=== PATIENT | female | born 1950 | race Caucasian/White ===

== ENCOUNTER 2017-02-21 09:00 | Inpatient (IN) | payer MEDICARE ==
--- NOTE | 2017-03-20 15:08 | HP ---
HISTORY AND PHYSICAL: DATE OF SURGERY: 03/28/17 DATE OF OFFICE VISIT: 03/20/17 SURGEON: Nara Kevin MD. PROCEDURE: Right total hip arthroplasty. CHIEF COMPLAINT: Right hip pain. HISTORY OF PRESENT ILLNESS: Ms. Rose is a 66-year-old female with complaints of right hip pain. She has failed conservative management and has elected to proceed with a right total hip arthroplasty, which is scheduled for 03/28/[address] Kevin. PAST MEDICAL HISTORY: 1. Squamous cell carcinoma. 2. She has a J-pouch. 3. History of pulmonary embolism. 4. Chronic bronchitis. PAST SURGICAL HISTORY: 1. Mohs chemosurgery. 2. Total colectomy. 3. Ileostomy reversal. 4. L3-L4 diskectomy. 5. Tonsillectomy. 6. Hysterectomy. CURRENT MEDICATIONS: 1. Nystatin. 2. Ventolin HFA. 3. Loperamide. 4. Gabapentin. 5. Duloxetine. 6. Diphenoxylate/atropine. 7. Citalopram. 8. Hydrobromide. 9. Vitamin B12. 10. Oxycodone 5 mg. 11. OxyContin 20 mg. 12. Xarelto 20 mg daily. 13. Vitamin D3. 14. Calcium. 15. Ibuprofen. 16. Metamucil. ALLERGIES: ZOLPIDEM. FAMILY HISTORY: Prostate and lung cancer, hypertension, Alzheimer's, and depression. SOCIAL HISTORY: She is a 66-year-old female. She lives with her . She does not smoke. She quit 17 years ago. She does not use drugs. She is a social alcohol user. REVIEW OF SYSTEMS: A complete 14-point review of systems was reviewed with the patient and was positive for a history of MRSA infection and pulmonary embolism. PHYSICAL EXAMINATION GENERAL: She is well developed, well nourished, is in no acute distress. VITAL SIGNS: She stands 5 feet 2 inches tall, weighs 212 pounds. Her blood pressure is 123/85. Her heart rate is 82. HEENT: Normocephalic, atraumatic. NECK: Supple. No palpable lymph nodes. CARDIO: Regular rate and rhythm. Strong S1, S2. PULMONARY: Lungs are clear to auscultation bilaterally. ABDOMEN: Soft, nontender, nondistended. MUSCULOSKELETAL: Right lower extremity, the skin is intact. She has no open wounds or abrasions. She walks with a slightly antalgic-type gait favoring her right leg. She has limited internal and external rotation of her right hip. Her lower extremity muscle group strengths are intact at 5/5. She has 2+ dorsalis pedis pulses and intact sensation. NEUROLOGIC: She is alert and oriented x3. Cranial nerves II through XII are intact. ASSESSMENT AND PLAN: Ms. Rose is a 66-year-old female with complaints of right hip pain secondary to advanced osteoarthritis. She has failed conservative management and has elected to proceed with a right total hip arthroplasty, which is scheduled for 03/28/[address] Kevin discussed the risks and benefits of the surgery at today's visit and all of her questions were answered. She was instructed by her primary care physician Dr. Miller to stop taking her Xarelto 5 days prior to the surgery. I have also asked her to stop her ibuprofen. Dr. Miller is currently managing her pain medication and she is currently on oxycodone 5 mg as well as OxyContin 20 mg twice a day, so no pain medication was sent at today's visit. She will see Dr. Kevin back in 2 weeks after the surgery. ALLYSON ECKERT [id number]/CPS #: [id number] MTDD
[2017-03-27] MEDS ORDERED: Buffered Lidocaine 0.9% SYRIN* 5 ML/SYR SYRINGE INTRADERM ONE (14:58)
[2017-03-28] MEDS ORDERED: Dexamethasone IV* 4 MG/ML 1 ML (4 MG) IV SLOW PU ONE (06:00)
[2017-03-28] MEDS ORDERED: Famotidine IV* 10 MG/ML 2 ML (20 mg) IV ONE (06:00)
[2017-03-28] MEDS ORDERED: Scopolamine 1.5 mg* PATCH TRANSDERM ONE (06:00)
[2017-03-28] MEDS ORDERED: Scopolamine 1.5 mg* PATCH ONE (10:03)
[2017-03-28] MEDS ORDERED: Buffered Lidocaine 0.9% SYRIN* 5 ML/SYR SYRINGE ONE (10:03)
[2017-03-28] MEDS ORDERED: ceFAZolin 2 GM PREMIX(*) 2 GM/50 ML BAG IVPB ONE (10:03)
[2017-03-28] MEDS ORDERED: Famotidine IV* 10 MG/ML 2 ML (20 mg) ONE (10:03)
[2017-03-28] MEDS ORDERED: Dexamethasone IV* 4 MG/ML 1 ML (4 MG) ONE (10:03)
[2017-03-28 11:12] LABS: Hematocrit 36 % (35-47); Hemoglobin 12.1 g/dl (12.0-16.0); Mean Corpuscular HGB Conc 33 g/dl (31-36); Mean Corpuscular Hemoglobin 29 pg (27-31); Mean Corpuscular Volume 86 fL (80-97); Mean Platelet Volume 7 um3 (7.4-10.4); Red Cell Distribution Width 15 % (10.5-15); White Blood Count 8.3 10^3/ul (3.5-10.8)
[2017-03-28 11:27] LABS: Albumin 4.2 g/dL (3.2-5.2); Calcium 9.2 mg/dL (8.6-10.3); EGFR African American 106.6 (>60); EGFR Non-African American 82.9 (>60); Globulin 2.7 g/dL (2-4); Potassium 3.8 mmol/L (3.5-5.0); Total Bilirubin 0.6 mg/dL (0.2-1.0); Total Protein 6.9 g/dL (6.4-8.9)
[2017-03-28] MEDS ORDERED: fentaNYL* 50 MCG/ML 5 ML VIAL (250 MCG VIAL) ONE (12:44)
[2017-03-28] MEDS ORDERED: Midazolam* 1 MG/ML 2 ML VIAL (2 MG) ONE (12:44)
[2017-03-28] MEDS ORDERED: KETAMINE HCL* 50 MG/ML 10 ML VIAL ONE (12:44)
[2017-03-28] MEDS ORDERED: Rocuronium* 10 MG/ML VIAL ONE (13:25)
[2017-03-28] MEDS ORDERED: Propofol* 10 MG/ML 20 ML BTL IV PUSH ONE (13:25)
[2017-03-28] MEDS ORDERED: Lidocaine 2% PF * 5 ML VIAL ONE (13:25)
[2017-03-28] MEDS ORDERED: fentaNYL* 50 MCG/ML 2 ML VIAL (100 MCG VIAL) ONE ×3 (13:37→15:11)
[2017-03-28] MEDS ORDERED: Bupivacaine 0.5% SDV PF* 30 ML VIAL ONE (13:53)
[2017-03-28] MEDS ORDERED: PROCHLORPERAZINE INJ 5 MG/ML 2 ML VIAL IV PRN (14:09)
[2017-03-28] MEDS ORDERED: oxyCODONE TAB* 5 MG TAB PO PRN ×2 (14:09→20:05)
[2017-03-28] MEDS ORDERED: Ondansetron INJ* 2 MG/ML VIAL IV PRN ×2 (14:09→16:29)
[2017-03-28] MEDS ORDERED: Acetaminophen IV 1GM/100ML * 100 ML IVPB ONE (14:09)
[2017-03-28] MEDS ORDERED: Nalbuphine* 20 MG/ML 1 ML VIAL IV PRN (14:09)
[2017-03-28] MEDS ORDERED: EPHEDrine (Pressors)* 50 MG/ML VIAL ONE (14:32)
[2017-03-28] MEDS ORDERED: Ondansetron INJ* 2 MG/ML VIAL ONE (14:34)
--- NOTE | 2017-03-28 15:24 | RAD ---
HISTORY: Right total hip replacement COMPARISONS: March 20, 2017 VIEWS: 1, portable intraoperative view of the pelvis during hip arthroplasty FINDINGS: Single portable intraoperative view of the pelvis to hip arthroplasty demonstrates a right hip arthroplasty with a temporary femoral sizing component. IMPRESSION: PORTABLE INTRAOPERATIVE VIEW OF THE PELVIS DURING HIP ARTHROPLASTY
[2017-03-28] MEDS ORDERED: Acetaminophen IV 1GM/100ML * 100 ML ONE (15:38)
[2017-03-28] MEDS ORDERED: Polyethylene Glycol 3350* 17 GM PACKET PO PRN (16:29)
[2017-03-28] MEDS ORDERED: Magnesium Hydroxide LIQ* 30 ML UDC PO PRN (16:29)
[2017-03-28] MEDS ORDERED: Acetaminophen TAB* 325 MG PO PRN (16:29)
[2017-03-28] MEDS ORDERED: diPHENhydraMINE IV* 50 MG/ML 1 ml VIAL (BENADRYL) IV PRN (16:29)
[2017-03-28] MEDS ORDERED: Metoprolol Tartrate IV* 1 MG/ML 5 ML VIAL ONE (16:29)
[2017-03-28] MEDS ORDERED: Bisacodyl SUPP* 10 MG SUPP PR PRN (16:29)
[2017-03-28] MEDS ORDERED: Diphenoxylat/Atrop 2.5-0.025M* 1 TAB PO PRN (16:34)
[2017-03-28] MEDS ORDERED: Morphine INJ* 4 MG/ML 1 ML SYRINGE ONE ×4 (16:41→17:47)
[2017-03-28] MEDS: Morphine INJ* 2 MG/ML 1 ML SYRINGE IV PRN ×8 (16:42→21:57)
[2017-03-28] MEDS ORDERED: oxyCODONE TAB* 5 MG TAB ONE (17:32)
[2017-03-28] MEDS: oxyCODONE TAB* 5 MG TAB PO PRN ×2 (17:36→23:15)
--- NOTE | 2017-03-28 17:37 | RAD ---
Indication: Postop RIGHT total hip replacement. Comparison: March 20, 2017 Technique: Portable AP pelvis and AP and crosstable lateral views RIGHT hip. Report: Noncemented RIGHT total hip prosthesis in place. Cerclage wire across the intratrochanteric region of the femur. No periprosthetic fracture evident. Surrounding soft tissue edema and subcutaneous emphysema. IMPRESSION: Unremarkable immediate postop appearance of RIGHT total hip replacement.
[2017-03-28] MEDS: oxyCODONE SR TAB(*) 10 MG TAB.SR PO SCH (20:09)
[2017-03-28] MEDS: Gabapentin CAP(*) 300 MG PO SCH (20:09)
[2017-03-28] MEDS: Docusate CAP* 100 MG PO SCH (20:09)
[2017-03-28] MEDS: Loperamide CAP* 2 MG PO SCH ×2 (20:10→21:54)
[2017-03-28] MEDS: ceFAZolin VIAL(*) 1 GM in NS 0.9% 50 ML* 50 ML IVPB SCH ×2 (20:10→21:55)
[2017-03-29] MEDS: Loperamide CAP* 2 MG PO SCH ×6 (02:02→22:19)
[2017-03-29] MEDS: Morphine INJ* 2 MG/ML 1 ML SYRINGE IV PRN ×4 (02:12→16:53)
[2017-03-29] MEDS: oxyCODONE TAB* 5 MG TAB PO PRN ×4 (05:44→18:21)
[2017-03-29] MEDS: ceFAZolin VIAL(*) 1 GM in NS 0.9% 50 ML* 50 ML IVPB SCH ×2 (05:46→14:24)
[2017-03-29 06:33] LABS: Hematocrit 32 % (35-47)
[2017-03-29 06:47] LABS: BUN/Creatinine Ratio 29.8 (8-20); Calcium 8.5 mg/dL (8.6-10.3); EGFR African American 137.3 (>60); EGFR Non-African American 106.8 (>60); Potassium 3.9 mmol/L (3.5-5.0)
[2017-03-29] MEDS: oxyCODONE SR TAB(*) 10 MG TAB.SR PO SCH ×2 (07:38→21:17)
[2017-03-29] MEDS: DULoxetine DR CAP* 60 MG CAP.DR PO SCH (07:38)
[2017-03-29] MEDS: Psyllium PAK PO SCH (07:38)
[2017-03-29] MEDS: Docusate CAP* 100 MG PO SCH ×2 (07:39→21:16)
--- NOTE | 2017-03-29 07:39 | PN ---
Progress Note - Progress Note Date of Service: 03/29/17 SOAP: Subjective: Pt. is alert, nad. Pain is controlled. Objective: RLE - thigh soft, dressing c/d/i. distally +df/pf, full sens lt, 2+ dp pulse. Vital Signs: Temp Pulse Resp BP Pulse Ox 97.3 F 85 16 138/70 96 03/29/17 03:59 03/29/17 03:59 03/29/17 05:45 03/29/17 03:59 03/29/17 03:59 Laboratory Results - last 24 hr 03/28/17 03/28/17 03/29/17 11:02 11:02 06:16 WBC 8.3 RBC 4.20 Hgb 12.1 10.0 L Hct 36 32 L MCV 86 MCH 29 MCHC 33 RDW 15 Plt Count 310 MPV 7 L Neut % (Auto) 81.5 Lymph % (Auto) 11.8 L [place] % (Auto) 4.9 Eos % (Auto) 0.8 Baso % (Auto) 1.0 Absolute Neuts (auto) 6.8 Absolute Lymphs (auto) 1.0 Absolute Monos (auto) 0.4 Absolute Eos (auto) 0.1 Absolute Basos (auto) 0.1 Absolute Nucleated RBC 0 Nucleated RBC % 0 INR (Anticoag Therapy) Sodium 138 Potassium 3.8 Chloride 104 Carbon Dioxide 25 Anion Gap 9 BUN 22 Creatinine 0.71 Est GFR ( Amer) 106.6 Est GFR (Non-Af Amer) 82.9 BUN/Creatinine Ratio 31.0 H Glucose 118 H Calcium 9.2 Total Bilirubin 0.60 AST 20 ALT 18 Alkaline Phosphatase 67 Total Protein 6.9 Albumin 4.2 Globulin 2.7 Albumin/Globulin Ratio 1.6 03/29/17 03/29/17 06:16 06:16 WBC RBC Hgb Hct MCV MCH MCHC RDW Plt Count MPV Neut % (Auto) Lymph % (Auto) [place] % (Auto) Eos % (Auto) Baso % (Auto) Absolute Neuts (auto) Absolute Lymphs (auto) Absolute Monos (auto) Absolute Eos (auto) Absolute Basos (auto) Absolute Nucleated RBC Nucleated RBC % INR (Anticoag Therapy) 1.00 Sodium 132 L Potassium 3.9 Chloride 101 Carbon Dioxide 27 Anion Gap 4 BUN 17 Creatinine 0.57 Est GFR ( Amer) 137.3 Est GFR (Non-Af Amer) 106.8 BUN/Creatinine Ratio 29.8 H Glucose 125 H Calcium 8.5 L Total Bilirubin AST ALT Alkaline Phosphatase Total Protein Albumin Globulin Albumin/Globulin Ratio Assessment: 66 yo F pod 1 s/p RTHA Plan: wbat rle pt/ot post hip precautions 8 mg coumadin tonight lovenox today d/c plan - home with vns vs snf
--- NOTE | 2017-03-29 16:19 | OP ---
OPERATIVE REPORT: DATE OF OPERATION: 03/28/17 DATE OF : 54 SURGEON: Nara Kevin MD FIRE SPRINKLER DESIGNER: ALLYSON Bacon Ms Jt did help throughout the procedure with preparation of the leg, wound retraction, manipul ation of the hip, and wound closure. ANESTHESIOLOGIST: Dr. Krueger. ANESTHESIA: General. PRE-OPERATIVE DIAGNOSIS: Severe end-stage degenerative osteoarthritis of the right hip due to devel opmental dysplasia. POST-OPERATIVE DIAGNOSIS: Severe end-stage degenerative osteoarthritis of the right hip due to deve lopmental dysplasia. OPERATIVE PROCEDURE: Right total hip arthroplasty. ESTIMATED BLOOD LOSS: 200 cc. COMPLICATIONS: None. SPECIMEN: Femoral head and acetabular reaming sent to pathology. HARDWARE USED: This is uncemented [employer] total hip hardware. For the cup, a Trident 52E acetabular shell, one 16 mm and one 25 mm cancellous bone screw, MDM liner cementless 42E was used. For the femur, an Accolade TMZF size 2.5 with 132-degree neck. One Dall-Miles 2.0 beaded cable was used prophylactically around the proximal femur. Biolox delta ceramic V40 femoral head 28 -2.7 wit h a worship MDM liner. BRIEF HISTORY/INDICATION: Ms. Rose is a 66-year-old female with months of severe right hip pain. She failed conservative treatment with anti-inflammatories, pain medication, intra-articular injec tion and physical therapy. Radiographs showed bone on bone arthritis. She elected to undergo right total hip arthroplasty due to continued pain and decreased quality of life. Informed consent was obtained from the patient. She understood the risks of surgery included, but w ere not limited to bleeding, infection, damage to nearby structures, continued pain, need for furthe r surgery, intraoperative fracture, nerve palsy, hardware failure or loosening, dislocation, leg zachary gth discrepancy, stroke, heart attack, blood clot, and . She wished to proceed. INTRAOPERATIVE FINDINGS: Ms. Rose was noted to have significant osteopenia. She had dysplastic h ip with a shallow acetabulum and a valgus anteverted femoral neck. Significant osteopenia was noted throughout the procedure with placement of the cup and the broach o r stem, one prophylactic Dall-Miles cable was chosen to add stability while placing the final implan t for the femur. DESCRIPTION OF PROCEDURE: Ms. Rose was identified in the preanesthesia unit. Her right lower ext remity was marked as the correct operative site. Informed consent was signed and placed in the anya t. The patient was taken to the operating room and placed under general anesthesia. A Roberson cathet er was placed. The patient was placed in the left lateral decubitus position on the peg board and a ll bony prominences were well padded. Right lower extremity was prepped and draped in the usual anna rile fashion. Preop time-out was made to correctly identify the patient, side and site. Appropriat e perioperative antibiotics were given within 1 hour of incision. A 15-cm posterior hip incision was made with a 10-blade and carried down to the lateral fascia layer . Lateral fascia layer was incised in line with the skin incision. A Charnley retractor was placed . The piriformis and conjoint tendons were identified. These were elevated off the posterolateral femur using electrocautery and tagged with two #5 Ethibond. Electrocautery was used to make postero lateral capsular flap and this was also tagged with two #5 Ethibond. The hip was carefully dislocat ed. Lesser troch to center of the femoral head measured 50 mm. An oscillating saw was used to make the appropriate femoral neck cut. The long valgus neck was noted, which was consistent with patien t's dysplasia. The femoral head was sent to pathology. The femur was carefully retracted anteriorly. After approp riate placement of retractors, the acetabulum was easily visualized. A long handled knife was used to remove any remaining labrum from the acetabular rim. The acetabulum was noted to be quite shallo w and dysplastic. The acetabulum was sequentially reamed up to a size 51. A good bleeding bone bed was obtained. A 51 trial had good fit. Final implant chosen was a Trident hemispherical acetabula r shell 52E. This was impacted into the acetabulum without difficulty. Satisfactory stability was obtained as well as appropriate anteversion and abduction angle. One 16 mm and one 25 mm screw was placed in superior posterior quadrant for extra stability. A 42E MDM cementless liner was chosen. This was impacted into the acetabulum without difficulty. S tability of the liner was checked and rechecked and noted to be stable. Attention was turned to preparation of the femur. After appropriate placement of retractors, the fe mur was easily visualized. A canal finder was used to enter the proximal femur. The proximal femur was sequentially broached up to a size 2.5. Osteopenia was noted throughout this procedure. A 132 neck trial was placed as well as 28/48/42E trial. Lesser troch to the center of the femoral head me asured 53 mm. Therefore, a trial was switched to a 28, -2.7 femoral head trial. The hip was reduced and taken through a range of motion. The hip was stable in all positions. Ther e was good soft tissue tension. The hip was carefully dislocated. All trials were carefully removed. A 2.0 [employer] cable was c arefully placed around the proximal femur and tightened. This was placed prophylactically. Final i mplant chosen was Accolade TMZF size 2.5 with a 132 femoral neck. This was impacted into the femora l canal without difficulty. There was no periprosthetic fracture. Final femoral head chosen was 28, -2.5 Biolox delta ceramic V40 femoral head. This was prepared wit h a 28/48/42E worship MDM insert. This was impacted on to the femoral neck without difficulty. The hip was reduced and taken through range of motion. The hip was stable in all positions. There was approximate soft tissue tension and leg lengths. The hip was copiously irrigated with sterile saline. The lateral fascia layer was closed using inte rrupted #1 Vicryl. The rest of the incision was closed in a layered fashion using 0 and 2-0 Vicryl. The skin was closed using running 3-0 Monocryl and Dermabond. The incision was covered with steri le Adaptic, 4x4's, and paper tape. The patient's anesthesia was reversed without difficulty. She wa s taken to the PACU in stable condition. Intended weightbearing will be weightbearing as tolerated. Intended DVT prophylaxis will be Coumadin with a Lovenox bridge. [id number]/[facility] #: [id number]
[2017-03-29] MEDS: Enoxaparin(*) 40 MG/0.4 ML SYR SUBCUT SCH (16:56)
[2017-03-29] MEDS ORDERED: Warfarin TAB(*) 4 MG PO ONE (17:00)
[2017-03-29] MEDS: oxyCODONE/Acetamin 5/325 MG* TAB PO PRN (19:55)
[2017-03-29] MEDS: Gabapentin CAP(*) 300 MG PO SCH (21:16)
[2017-03-30] MEDS: Loperamide CAP* 2 MG PO SCH ×6 (02:01→22:36)
[2017-03-30] MEDS: oxyCODONE TAB* 5 MG TAB PO PRN ×5 (02:23→21:18)
[2017-03-30] MEDS: oxyCODONE/Acetamin 5/325 MG* TAB PO PRN ×5 (06:33→23:49)
[2017-03-30 07:13] LABS: Hematocrit 28 % (35-47); Hemoglobin 9.1 g/dl (12.0-16.0)
[2017-03-30] MEDS: Psyllium PAK PO SCH (07:24)
[2017-03-30] MEDS: oxyCODONE SR TAB(*) 10 MG TAB.SR PO SCH ×2 (07:27→20:50)
[2017-03-30] MEDS: DULoxetine DR CAP* 60 MG CAP.DR PO SCH (07:27)
[2017-03-30] MEDS: Docusate CAP* 100 MG PO SCH ×3 (07:30→20:51)
--- NOTE | 2017-03-30 08:24 | PN ---
Progress Note - Progress Note Date of Service: 03/30/17 SOAP: Subjective: [Pt was seen today sitting up in chair. States that she is improving. Pain is better controlled today. She states that she does not feel ready to go home today. She would like to stay longer if possible. Denies any SOB, Chest pain, fevers, chills or night sweats. ] Objective: [She is A&O. NAD R hip dressing changed today. Incision is clean, dry and intact. Minimal blood on old dressing gauze. Pt is able to stand with walker. + df/pf. Vital Signs Temp 98.9 F 03/30/17 07:45 Pulse 90 03/30/17 07:45 Resp 20 03/30/17 08:04 BP 106/56 03/30/17 07:45 Pulse Ox 93 03/30/17 07:45 Intake & Output 03/29/17 03/30/17 03/30/17 18:59 06:59 18:59 Intake Total 2919 670 Output Total 2300 350 Balance 619 320 Intake: IV Fluids 170 LR 170 IVPB 1479 LR 1363 abx 116 Oral 1440 500 Output: Urine 200 Roberson 2300 Liquid Stool 150 Other: Estimated Void Small Date of Last Bowel 03/30/17 Movement # Bowel Movements 0 Estimated Stool Amount Small ] Assessment: 66 yo F pod 2 s/p RTHA Plan: wbat rle pt/ot post hip precautions 8 mg coumadin tonight lovenox today d/c plan - PMRU consult today Home via [facility] tomorrow if not possible directly home on saturday.
[2017-03-30] MEDS: Morphine INJ* 2 MG/ML 1 ML SYRINGE IV PRN (09:30)
[2017-03-30] MEDS ORDERED: Albuterol 2.5 MG/3 ML NEB.SOL* (0.083%) INH PRN (15:36)
--- NOTE | 2017-03-30 15:57 | RAD ---
HISTORY: Hypoxemia COMPARISONS: March 20, 2017 VIEWS: 2: Frontal dual-energy and lateral views of the chest. FINDINGS: CARDIOMEDIASTINAL SILHOUETTE: The cardiomediastinal silhouette is normal. JUAN: The juan are normal. PLEURA: The costophrenic angles are sharp. No pleural abnormalities are noted. LUNG PARENCHYMA: The lungs are clear. ABDOMEN: The upper abdomen is clear. There is no subphrenic gas. BONES AND SOFT TISSUES: Degenerative changes are noted OTHER: None. IMPRESSION: NO ACTIVE CARDIOPULMONARY DISEASE.
[2017-03-30] MEDS: Enoxaparin(*) 40 MG/0.4 ML SYR SUBCUT SCH (16:59)
[2017-03-30 17:52] LABS: Hematocrit 27 % (35-47); Hemoglobin 8.9 g/dl (12.0-16.0); Mean Corpuscular HGB Conc 33 g/dl (31-36); Mean Corpuscular Hemoglobin 29 pg (27-31); Mean Corpuscular Volume 87 fL (80-97); Mean Platelet Volume 7 um3 (7.4-10.4); Red Blood Count 3.08 10^6/ul (4.0-5.4); Red Cell Distribution Width 15 % (10.5-15); White Blood Count 7.8 10^3/ul (3.5-10.8)
[2017-03-30 20:14] LABS: Urine Bacteria Absent (Absent); Urine Bilirubin Negative (Negative); Urine Glucose Negative (Negative); Urine Nitrite Negative (Negative)
[2017-03-30] MEDS: Gabapentin CAP(*) 300 MG PO SCH (20:49)
[2017-03-31] MEDS: oxyCODONE TAB* 5 MG TAB PO PRN ×3 (01:45→10:06)
[2017-03-31] MEDS: Loperamide CAP* 2 MG PO SCH ×3 (01:45→10:06)
[2017-03-31] MEDS: oxyCODONE/Acetamin 5/325 MG* TAB PO PRN ×2 (04:02→08:20)
[2017-03-31] MEDS ORDERED: Scopolomine PATCH Remove* 1 NOTE MISC PATCH OFF ONE (06:00)
--- NOTE | 2017-03-31 06:10 | CONS ---
CC: Dr. Miller; Dr. Kevin* CONSULTATION REPORT: DATE OF CONSULT: 03/30/17 DATE OF ADMISSION: 03/28/17 PRIMARY CARE PROVIDER: Dr. Miller REQUESTING PHYSICIAN FOR CONSULT: Nara Kevin MD. MY ATTENDING PHYSICIAN WHILE IN THE HOSPITAL: Estrellita Ojeda DO (report being dictated by Rick Grant NP). REASON FOR MEDICAL CONSULTATION: Evaluation of fever. HISTORY OF PRESENT ILLNESS: Ms. Rose is a 66-year-old female patient that presented to the orthopedic services on the for an elective right total hip replacement, which she underwent without complication. She had been complaining in the outpatient setting for sometime of right hip pain and has been failing conservative therapy. She did carry a history of squamous cell cancer, pulmonary embolism, chronic bronchitis. She has a history of salmonella infection with status post colectomy with the J-pouch and a history of arthritis and chronic back pain. She was doing well postoperatively until today around 1:30 it was noted that she had a fever of 101.9, and we were asked to evaluate in consult. In evaluating the patient, she states she has been coughing postoperatively, bringing up some yellow sputum at times, but she denies feeling short of breath, denies having any chest pain, denies having any abdominal pain. She states she has not been having any nausea or vomiting. She states that she has been feeling otherwise well. States her pain is controlled, most pain she has now is actually in her left knee, because she has been using her left leg quite significantly because of the surgery on the other leg. The patient states that she has not noticed any discharge from the dressing. There has been no abdominal pain or chest pain, but because of the fever, we were asked to evaluate for consult. PAST MEDICAL HISTORY: Significant for: 1. Squamous cell cancer. 2. History of PE. 3. History of chronic bronchitis. 4. Chronic pain. 5. Anxiety. 6. Depression. 7. OLIVE. PAST SURGICAL HISTORY: She has had: 1. History of right total hip replacement. 2. Colectomy with J-pouch. 3. Laminectomy. 4. Hysterectomy. MEDICATIONS: Home meds according the list that she provided preoperatively include: 1. Percocet 1 tablet every 4 hours as needed. 2. OxyContin 20 mg every 4 hours as needed. 3. Xarelto 20 mg daily. 4. Metamucil 1 packet p.o. daily. 5. Imodium 4 mg p.o. every 4 hours. 6. Gabapentin 300 mg p.o. daily. 7. Lomotil 1 tablet p.o. q.i.d. as needed. 8. Cymbalta 60 mg daily. 9. B12 1000 mcg daily. 10. Calcium carbonate 2 tablets p.o. daily. ALLERGIES TO MEDICATIONS: Includes AMBIEN. FAMILY HISTORY: Mother had a history of hypertension and dementia. Father had a history of lung cancer, small cell. SOCIAL HISTORY: She is a former smoker, but she quit many years ago. She occasionally drinks alcohol, very rarely. She is with children. Surrogate decision maker is her . REVIEW OF SYSTEMS: There is a documented fever now, but there is no significant weight change. No double vision. No ear discharge. No rhinorrhea. No sore throat. No thyroid enlargement. She does admit to having a cough at times. No shortness of breath. No orthopnea. No nocturnal dyspnea. There was no abdominal pain. No nausea, no vomiting. No dysuria. No frequency. There was no seizure. No loss of consciousness. No pruritus and no skin ulcerations. Review of 14 systems completed, all others negative. PHYSICAL EXAM: Reveals vital signs blood pressure 119/61, pulse 104, pulse now is noted to be 90, O2 sat was 90% on room air, but then it went up to 98 % shortly thereafter and then she has been on room air now, respirations were 18. General: At this time, Mrs. Rose is a 66-year-old female patient. She appears to be well developed, well nourished. She does not appear to be in any acute distress. HEENT: Head is atraumatic. Eyes: EOMs are intact. Sclerae anicteric and not pale. Neck: Supple. Throat: Oral mucosa appears to be dry. No oropharyngeal erythema. Heart: Sounds S1, S2. Regular rate and rhythm. No murmurs, rubs, or gallops. Lungs: Clear to auscultation. No wheezes, rales, or rhonchi. Abdomen: Soft, flat, nontender. Bowel sounds are present. Extremities: Pulses 2+ throughout. She has limited range of motion of the right lower extremity because of the operative leg, but she has 5/5 strength with dorsi and plantar flexion. Neurologically, she is awake, alert, and oriented x3. No gross focal deficits. The skin is intact. The incision to the right hip is covered with the dressing, clean, dry, and intact. There is no drainage or discharge noted. DIAGNOSTIC STUDIES/LAB DATA: From today; hemoglobin 9.1, hematocrit of 28, her WBC on the 29th was 8.3. Her INR was 1.42. Sodium 132 on the 30th, potassium was 3.9, chloride 101, bicarb 27, BUN 13, creatinine of 0.75, glucose 125, calcium 8.5. She did have a preop chest x-ray, did show a new evidence for active cardiopulmonary disease. Old medical records were reviewed. ASSESSMENT AND PLAN: Mrs. Rose is a 66-year-old female patient coming into the orthopedic services for elective total hip. She is postop day 2 now, and it is noted that she had a fever. Hospitalist service was asked to evaluate for consult. Recommendations at this point are: 1. Status post right total hip. Defer the management to Dr. Kevin and her team. 2. Postop day 2 fever: Etiology is unclear, it certainly could be related to the recent procedure; however, this is rather a high fever and is 2 days out. I think minimally, we need to go ahead and panculture the patient with blood cultures, sputum and urine culture, and chest x-ray and follow. Should she become again, I have a low threshold to do a CTA of the chest although I suspect this is less likely that she had a PE. She is on appropriate anticoagulation, but we will follow her and if any of the cultures present itself or come back positive obviously we will treat, of if the x-ray looks like it has like a pneumonia, which we will certainly treat, but at this point, I am going to hold off on treating her, her temperature is coming down now and her heart rate is stable. We will follow. 3. Squamous cell cancer: Follow with primary. 4. History of PE: Continue with her Xarelto. 5. Chronic bronchitis: I will order p.r.n. nebulizers should she need them. 6. Obstructive sleep apnea: Continue her CPAP per machines at the bedside. 7. Anxiety and depression: Continue with supportive care. 8. DVT prophylaxis: Continue the Xarelto. 9. Code status: Full code. 10. Fluids, electrolytes, and nutrition: She can have a regular diet. TIME SPENT: Time spent on the consult was 60 minutes; greater than half the time was spent [id number] with the patient obtaining my history and physical, other half the time spent going over the plan of care with the patient and implementing plan of care. I did discuss the plan of care with my attending, Dr. Ojeda; she is in agreement. RICK GRANT, FOUZIA [id number]/CPS #: [id number] JOSE
[2017-03-31] MEDS: Docusate CAP* 100 MG PO SCH (08:10)
[2017-03-31] MEDS: DULoxetine DR CAP* 60 MG CAP.DR PO SCH (08:19)
[2017-03-31] MEDS: oxyCODONE SR TAB(*) 10 MG TAB.SR PO SCH (08:19)
[2017-03-31] MEDS: Psyllium PAK PO SCH (08:21)
[2017-03-31 08:30] VITALS: BP 112/64
--- NOTE | 2017-03-31 08:39 | PN ---
Progress Note - Progress Note Date of Service: 03/31/17 SOAP: Subjective: POD #3 R COREY. Doing better, pt is complaining of less pain today but still sore. Pt with fever yesterday, afebrile since. Denies CP/SOB, calf pain or swelling Objective: Vitals: Temp Pulse Resp BP Pulse Ox 99.2 F 100 16 112/64 96 03/31/17 08:28 03/31/17 08:28 03/31/17 08:28 03/31/17 08:28 03/31/17 08:28 Gen: A&O x3, NAD in bed R Hip: Dressing C/D/I, thigh soft with mild ttp. +f/e at ankles, MTPs, N/V intact. Calf soft/NT Labs: Laboratory Results - last 24 hr 03/30/17 03/30/17 17:21 19:30 WBC 7.8 RBC 3.08 L Hgb 8.9 L Hct 27 L MCV 87 MCH 29 MCHC 33 RDW 15 Plt Count 201 MPV 7 L Neut % (Auto) 77.6 Lymph % (Auto) 9.2 L [place] % (Auto) 7.8 Eos % (Auto) 4.0 Baso % (Auto) 1.4 Absolute Neuts (auto) 6.0 Absolute Lymphs (auto) 0.7 L Absolute Monos (auto) 0.6 Absolute Eos (auto) 0.3 Absolute Basos (auto) 0.1 Absolute Nucleated RBC 0.01 Nucleated RBC % 0.1 Urine Color Yellow Urine Appearance Clear Urine pH 6.0 Ur Specific [place] 1.005 L Urine Protein Negative Urine Ketones Negative Urine Blood 1+ H Urine Nitrate Negative Urine Bilirubin Negative Urine Urobilinogen Negative Ur Leukocyte Esterase Negative Urine WBC (Auto) Absent Urine RBC (Auto) Trace(0-2/hpf) Ur Squamous Epith Cells Present H Urine Bacteria Absent Urine Glucose Negative Assessment: POD #3 R COREY Plan: Pt accepted to [facility], to be d/c'd today VSS, afebrile since yesterday, CXR and urine negative. Sputum and blood cultures pending Continue WBAT RLE with walker Continue Xarelto for DVT ppx Dry dressing to right hip as needed F/u with Dr. Kevin upon d/c from [facility]
[2017-03-31] MEDS ORDERED: Rivaroxaban TAB(*) 20 MG TAB PO SCH (09:00)
[2017-03-31 09:12] LABS: Hematocrit 26 % (35-47); Hemoglobin 8.7 g/dl (12.0-16.0); Mean Corpuscular HGB Conc 34 g/dl (31-36); Mean Corpuscular Hemoglobin 29 pg (27-31); Mean Corpuscular Volume 87 fL (80-97); Mean Platelet Volume 7 um3 (7.4-10.4); Red Cell Distribution Width 15 % (10.5-15); White Blood Count 6.1 10^3/ul (3.5-10.8)
[2017-03-31 09:30] LABS: BUN/Creatinine Ratio 15.9 (8-20); Calcium 8.2 mg/dL (8.6-10.3); EGFR African American 122.4 (>60); EGFR Non-African American 95.1 (>60); Potassium 3.4 mmol/L (3.5-5.0)
[2017-03-31] MEDS ORDERED: Iohexol 350* (CONTRAST) 500 ML MDV IV ONE (10:23)
[2017-03-31 10:50] LABS: Magnesium 1.6 mg/dL (1.9-2.7)
[2017-03-31] MEDS ORDERED: Magnesium Oxide TAB* 400 MG PO SCH (12:00)
[2017-03-31] MEDS ORDERED: Calcium Carbonate CHEW TAB* 500 MG (TUMS) PO SCH (12:00)
[2017-03-31] MEDS ORDERED: Potassium Chlor TAB* 20 MEQ TAB.ER PO SCH (12:00)
--- NOTE | 2017-03-31 13:57 | RAD ---
INDICATION: Chest pain. Short of breath. Evaluate for pulmonary embolus. COMPARISON: CTA chest February 01, 2015 TECHNIQUE: Axial source images were obtained from the thoracic inlet to the hemidiaphragms following administration of [address] angiographic technique was utilized. Coronal and sagittal reconstructed images were acquired. CHEST FINDINGS: Neck/thyroid: The visualized neck to include the thyroid appear normal. Chest wall: There are no acute abnormalities of the bony thorax or chest wall. There is no supraclavicular, infraclavicular, or axillary lymphadenopathy. Lungs : There are no pulmonary parenchymal masses or infiltrates. The pulmonary interstitium appears normal. There are no endobronchial lesions. Cardiomediastinal structures: There is no CT evidence of acute pulmonary embolic disease. The heart is normal in size. There is no pericardial effusion. There is no evidence of aortic aneurysm or dissection. There is no mediastinal or hilar adenopathy. The esophagus appears normal. Pleura : There are no pleural-based masses or effusions. Other: None. IMPRESSION: NO CT EVIDENCE OF ACUTE PULMONARY EMBOLIC DISEASE.
--- NOTE | 2017-03-31 15:31 | PN ---
Subjective Date of Service: 03/31/17 Interval History: This is a 66 yo female who is POD #4 s/p TKR. Hospitalist group was asked to consult regarding fever that developed starting yesterday. Patient is essentially asymptomatic. CXR shows NAD. Urine cx growing only a few colonies of bacteria, repeat labs are unremarkable. CTA ordered this am to eval for PE. Patient has been discharged to PMRU at this time. She continues to have low grade fevers. Objective Active Medications: Home Medications Medication Instructions Recorded Confirmed Type Loperamide CAP* [Imodium CAP*] 4 mg PO Q4HR 08/08/12 03/31/17 History oxyCODONE SR TAB(*) [Oxycontin 20 20 mg PO BID 11/25/14 03/31/17 History mg (*)] Rivaroxaban TAB(*) [Xarelto 20 mg] 20 mg PO QAM 07/15/15 03/31/17 History Calcium Carbonate [Calcium 600] 2 tab PO QAM 03/20/17 03/31/17 History Cyanocobalamin TAB* [Vitamin B12 1,000 mcg PO QAM 03/20/17 03/31/17 History TAB*] DULoxetine DR CAP* [Cymbalta CAP*] 60 mg PO QAM 03/20/17 03/31/17 History Diphenoxylat/Atrop 2.5-0.025M* 1 tab PO QID PRN 03/20/17 03/31/17 History [Lomotil TAB*] Gabapentin CAP(*) [Neurontin 300 300 mg PO BEDTIME 03/20/17 03/31/17 History CAP(*)] Psyllium JOSE* [Metamucil JOSE*] 1 pkt PO QAM 03/20/17 03/31/17 History oxyCODONE/Acetamin 5/325 MG* 1 tab PO Q4H PRN 03/20/17 03/31/17 History [Percocet 5/325 TAB*] Acetaminophen TAB* [Tylenol TAB*] 650 mg PO Q4H PRN #0 tab 03/31/17 03/31/17 Rx Albuterol 2.5MG/3ML (0.083%)* 2.5 mg INH Q2H PRN #0 ml 03/31/17 03/31/17 Rx [Ventolin 2.5 MG/3 ML NEB.KALPANA*] Bisacodyl SUPP* [Dulcolax Supp*] 10 mg VA DAILY PRN #0 supp 03/31/17 03/31/17 Rx oxyCODONE SR TAB(*) [Oxycontin 10 30 mg PO BID tab.sr MDD 2 03/31/17 03/31/17 Rx mg (*)] oxyCODONE TAB* [Roxycodone TAB 5 5 mg PO Q4H PRN #0 tab MDD 6 03/31/17 03/31/17 Rx mg*] oxyCODONE TAB* [Roxycodone TAB 5 10 mg PO Q4H PRN #0 tab MDD 6 03/31/17 Rx mg*] oxyCODONE/Acetamin 5/325 MG* 1 tab PO Q4H PRN #0 tab MDD 6 03/31/17 03/31/17 Rx [Percocet 5/325 TAB*] Vital Signs: Temp Pulse Resp BP Pulse Ox 99.2 F 100 22 112/64 96 03/31/17 08:28 03/31/17 08:28 03/31/17 10:06 03/31/17 08:28 03/31/17 08:28 Oxygen Devices in Use Now: None Appearance: Well appearing middle aged female in NAD Respiratory: Symmetrical Chest Expansion and Respiratory Effort, Clear to Auscultation Cardiovascular: NL Sounds; No Murmurs; No JVD, RRR Abdominal: NL Sounds; No Tenderness; No Distention Skin: No Rash or Ulcers Neurological: Alert and Oriented x 3 Result Diagrams: 03/31/17 08:59 03/31/17 08:59 Microbiology and Other Data: Microbiology 03/30/17 19:30 Urine Culture - Preliminary Urine Serratia Marcescens 03/28/17 23:35 Nasal Screen MRSA (PCR)(KRISTA) - Final Nasal Mrsa Negative Diagnostic Imaging: CXR - NAD CTA chest - no PE, NAD Assess/Plan/Problems-Billing Assessment: This is a 66 yo female with h/o PE, OLIVE, anxiety and depression who is s/p TKR. Hospitalist group has been asked to consult for evaluation of postop fever. - Patient Problems (1) Status post total knee replacement Comment: Management per ortho, plans for dc to PMRU (2) Postoperative fever Comment: Developed fever POD#2 No focal symptoms or leukocytosis CXR neg Only 10-25K colonies of Serratia CTA neg for PE Do not recommend empiric treatment at this time, blood cultures still pending Cont to monitor vitals but no further workup appears warranted at this time (3) History of pulmonary embolus (PE) Comment: Cont Xarelto (4) History of anxiety (5) History of depression Status and Disposition: Discharge to [facility] per ortho
--- NOTE | 2017-04-01 05:09 | DS ---
DISCHARGE SUMMARY: DATE OF ADMISSION: 03/28/17 DATE OF DISCHARGE: 03/31/17 ADMITTING DIAGNOSIS: Severe end-stage osteoarthritis of the right hip. DISCHARGE DIAGNOSIS: Severe end-stage osteoarthritis of the right hip, status post right total hip arthroplasty. SECONDARY DIAGNOSES: 1. Chronic bronchitis. 2. Depression and anxiety. 3. Status post total colectomy. HISTORY OF PRESENT ILLNESS: Ms. Rose is a 66-year-old female who had ongoing complaints of right hip pain. She failed conservative management and elected to proceed with right total hip arthroplasty. HOSPITAL COURSE: On 03/28/17, Ms. Rose was admitted to [facility] and underwent a successful right total hip arthroplasty by Dr. Kevin. She recovered briefly in the post anesthesia care unit and was transferred to the short- stay surgical unit in stable condition. Patient's pain was controlled with oral and IV pain medication throughout postop day 0 and on postop day 1, patient continued to complain of significant amount of pain, however this was controlled with IV pain medication. Still she resumed her home medication of Xarelto for DVT prophylaxes on postop day 1. She had some acute blood loss anemia with H and H of 10 and 32; however, the patient was asymptomatic. On postop day 1, the patient was able to begin working with physical therapy and was able to ambulate a very short distance with the use of a rolling walker, however, she was hindered by some pain. On postop day 2, she did report that her pain was somewhat better and she was able to do more work with physical therapy. She continues to have some acute blood loss anemia, H and H of 9.1 and 28. On postop day 2, the patient did have increase in her temperature, she had fever of 101.9. She was also slightly tachycardic at 104, for this reason the hospitalist was consulted. Blood cultures were obtained and has not been resulted, a full CBC was done. She did not have an increase in her white blood cell count. She did report some coughing with sputum production, however, her chest x-ray was negative. Sputum cultures are still waiting. Urinalysis was negative for any signs of infection. She has since remained afebrile. She was consulted on by [facility] services and was accepted to the inpatient rehab service at [facility]. For this reason, she will be discharged to the rehab center on postop day 3. DISCHARGE CONDITION: Stable. DISCHARGE MEDICATIONS: Patient will continue taking oral pain medication, 1. Oxycodone 5 to 10 mg p.o. q.4 hours p.r.n. pain. 2. OxyContin 30 mg p.o. b.i.d. 3. She will continue on her home dose of Xarelto 20 mg daily for DVT prophylaxis. 4. She will continue Colace 100 mg p.o. b.i.d. 5. Milk of magnesia 30 mg p.o. q.6 hours p.r.n. 6. MiraLAX 17 g p.o. daily as needed for constipation. 7. The patient will also resume her gabapentin 300 mg p.o. q.h.s. 8. Duloxetine 60 mg p.o. q. a.m. DISCHARGE INSTRUCTIONS: The patient will continue weightbearing as tolerated and work with physical therapy on the rehab unit. She was again reminded of her posterior hip precautions. Her wound care would include keeping the incision dry until postop day 4, she may shower normally after that and apply dry dressing as needed. She is not to submerge the wound in a bathtub, hot tub or the swimming pool which she understands. She will follow up in the office with Dr. Kevin upon discharge from the rehab unit. All of her questions were answered to her full satisfaction. ALLYSON HAYNES [id number]/[facility] #: [id number] JOSE
== END 2017-03-31 09:24 | DRG 470 ==
LOC: AA 03-28 09:58 → SSU 03-28 16:30
PROVIDERS: ADMIT Orthopaedic Surgery Adult Reconstructive Orthopaedic Surgery; ATTEND Orthopaedic Surgery Adult Reconstructive Orthopaedic Surgery
PROC: 0SR904A Replacement of Right Hip Joint with Ceramic on Polyethylene Synthetic Substitute, Uncemented, Open Approach (ICD-10-PCS; principal; 2017-03-28 12:00)
DX: M16.11 Unilateral primary osteoarthritis, right hip (principal); I27.2 Other secondary pulmonary hypertension; D62 Acute posthemorrhagic anemia; J42 Unspecified chronic bronchitis; F41.9 Anxiety disorder, unspecified; F32.9 Major depressive disorder, single episode, unspecified; G47.33 Obstructive sleep apnea (adult) (pediatric); G89.29 Other chronic pain; M54.9 Dorsalgia, unspecified; G43.909 Migraine, unspecified, not intractable, without status migrainosus; K21.9 Gastro-esophageal reflux disease without esophagitis; M85.88 Other specified disorders of bone density and structure, other site; R00.0 Tachycardia, unspecified; R05 Cough; R50.82 Postprocedural fever; Z88.8 Allergy status to other drugs, medicaments and biological substances; Z79.01 Long term (current) use of anticoagulants; Z90.49 Acquired absence of other specified parts of digestive tract; Z85.828 Personal history of other malignant neoplasm of skin; Z86.711 Personal history of pulmonary embolism; Z90.710 Acquired absence of both cervix and uterus; Z80.42 Family history of malignant neoplasm of prostate; Z80.1 Family history of malignant neoplasm of trachea, bronchus and lung; Z81.8 Family history of other mental and behavioral disorders; Z82.49 Family history of ischemic heart disease and other diseases of the circulatory system; Z87.891 Personal history of nicotine dependence; Q65.89 Other specified congenital deformities of hip; Z93.4 Other artificial openings of gastrointestinal tract status
CPT/HCPCS: 36415; 71020; 71275; 72170; 80048; 80053; 81003; 81015; 83735; 85014; 85018; 85025; 85610; 87040; 87077; 87086; 87186; 87641; A9270-GY; C1713; C1776; J0690; J1100; J1650; J2250; J2270; J2405; J2704; J3010; Q9967

== ENCOUNTER 2017-03-31 08:58 | Inpatient (IN) | payer MEDICARE ==
[2017-03-31] MEDS ORDERED: Al Hydrox/Mg Hydrox/Simet LIQ* 30 ML UDC PO PRN (09:24)
[2017-03-31] MEDS ORDERED: Diphenoxylat/Atrop 2.5-0.025M* 1 TAB PO PRN (09:32)
[2017-03-31] MEDS ORDERED: oxyCODONE TAB* 5 MG TAB PO PRN (09:33)
[2017-03-31] MEDS: Loperamide CAP* 2 MG PO SCH ×4 (11:17→21:34)
[2017-03-31] MEDS: oxyCODONE SR TAB(*) 10 MG TAB.SR PO SCH ×2 (11:19→22:16)
[2017-03-31] MEDS ORDERED: Iohexol 350* (CONTRAST) 500 ML MDV IV ONE (13:17)
[2017-03-31] MEDS: oxyCODONE TAB* 5 MG TAB PO PRN ×3 (14:07→22:17)
[2017-03-31] MEDS: Magnesium Oxide TAB* 400 MG PO SCH ×2 (14:07→21:33)
--- NOTE | 2017-03-31 15:44 | PN ---
Hospitalist Progress Note Hospitalist group asked to evaluate regarding postoperative fever. Workup including CTA of the chest is negative and exam is non-focal. No further workup or empiric therapy indicated at this time. Cont to monitor vitals. Please see full consult and follow up for further details. Hospitalist group will sign off at this time, but if she develops new symptoms or is persistently febrile we are happy to re-evaluate.
[2017-03-31] MEDS: Calcium Carbonate CHEW TAB* 500 MG (TUMS) PO SCH ×2 (18:02→21:32)
--- NOTE | 2017-03-31 18:39 | HP ---
CC: Dr. Miller; Dr. Kevin. REHABILITATION ADMISSION: DATE OF ADMISSION: 03/31/17 PRIMARY CARE PROVIDER: Dr. Miller. ORTHOPEDIC SURGEON: Dr. Kevin. REASON FOR ADMISSION: Right total hip replacement secondary to osteoarthritis. HISTORY OF PRESENT ILLNESS: This is a 66-year-old woman who on 03/28/17 was admitted for elective right total hip replacement secondary to severe right hip osteoarthritis. She is also suffering from osteoarthritis in both of her knees and has been limited in mobility and at times using forearm crutches to ambulate prior to admission. Postoperatively, she has weightbearing as tolerated and total hip precautions. Yesterday, she was febrile up to 101.9. She was seen by the hospitalist service and fever workup including urinalysis, chest x-ray and blood cultures were completed. There has been no source of the fever thus far. She was a little bit tachycardic at that time as well and her fever has defervesced and her heart has remained at approximately 100. She has had some acute postoperative anemia, today her hemoglobin 8.7 and hematocrit 26 down from preoperative values of 10 and 32 respectively. She has not required any transfusion thus far. She has a history of DVT and pulmonary embolism and normally is on Xarelto. Initially, postoperatively she was managed with Lovenox 40 daily and started on Coumadin, but after discussion with Dr. Kevin she was transitioned to Xarelto starting today. She is status post colectomy in 2006 secondary to salmonella poisoning. Initially she had and ileostomy which was later reversed. Her normal bowel patterns are 12 or 14 bowel movements per day and she chronically is on Imodium and Lomotil as well as Metamucil. As of yesterday, she had only one bowel movement, yesterday she had 6 and so her bowels seem to be starting to regulate. Unfortunately she is unable to independently toilet herself at this time and her is unable to assist at home due to his own medical issues. She also has chronic pain related to her lower back and she is status post L3-4 diskectomy as well as osteoarthritis previously mentioned. She is normally on OxyContin 20 mg b.i.d. and oxycodone p.r.n. Doses have been increased in this perioperative period. Prior to admission, she was independent ambulating with forearm crutches and independent with activities of daily living. With physical therapy here, bed mobility has been min assist, she has been transferring with supervision and ambulating with contact guard assistance using a rolling walker up to 12 feet. With occupational therapy, she has required contact guard assistance for dressing with funeral home general manager and sock aid. Bathing requires maximum amount of assistance and for toileting she requires a minimal amount of assistance. She cannot reach behind at this time to wipe herself after a bowel movement which presents significant issue given the number of times she needs to go in a day due to her short bowel syndrome. PAST MEDICAL HISTORY: 1. History of squamous cell carcinoma. 2. History of DVT and PE, chronically on Xarelto. 3. History of J-pouch. 4. Chronic bronchitis. 5. Status post Mohs. 6. Status post total colectomy for salmonella poisoning in 2006. 7. History of ileostomy and ileostomy reversal. 8. Chronic low back pain status post L3-4 diskectomy. 9. Status post tonsillectomy. 10. Status post hysterectomy. 11. Chronic pain related to her lower back and osteoarthritis affecting previously her right hip and both knees. 12. Obstructive sleep apnea starting CPAP 2 months ago. MEDICATIONS: 1. Tylenol p.r.n. 2. Cymbalta 60 mg daily. 3. Gabapentin 300 mg q.h.s. 4. Imodium 4 mg q. 4 hours. 5. Lomotil 1 p.o. q.i.d. p.r.n. diarrhea. 6. Oxycodone 5-10 mg q. 4 hours p.r.n. 7. OxyContin 30 mg q. 12 hours. 8. Percocet 5/325 one q. 4 hours p.r.n. which is going to be discontinued in favor of allowing oxycodone up to 15 mg every 4 hours p.r.n. 9. Metamucil 1 packet q. a.m. 10. Xarelto 20 mg daily. ALLERGIES: ZOLPIDEM. FAMILY HISTORY: Mother hypertension. Father lung cancer. SOCIAL HISTORY: She lives with her . There are three steps to enter and then she is on one story. She has been on SSDI for about 10 years due to her bowel issues and fecal frequency. She is a former smoker. She rarely drinks alcohol. Her is disabled secondary to back issues. He is her health care proxy in case she cannot make decisions for herself. His name is Matt Vieira, phone number is [phone] and [phone]. REVIEW OF SYSTEMS: See history of present illness and past medical history. The remainder of system review is completed, no other significant findings. PHYSICAL EXAMINATION GENERAL: Well developed, well nourished. VITAL SIGNS: Temperature 99.2, heart rate 100, respirations 16, oxygen saturation 96% on room air. Blood pressure 112/64. MENTAL STATUS: No acute distress. Alert and oriented x3. HEENT: Normocephalic, atraumatic. Oropharynx clear. LUNGS: Clear to auscultation bilaterally. HEART: Regular rate and rhythm. ABDOMEN: Active bowel sounds. Soft, nontender, nondistended. EXTREMITIES: No clubbing, cyanosis, or edema. MUSCULOSKELETAL: She has functional range of motion of all her major joints excluding testing of her right hip and knee secondary to pain and her surgery. NEUROLOGIC: Cranial nerves II through XII are intact. Upper and lower extremity motor 5/5 bilaterally with once again limited testing of the right hip and knee secondary to pain. Sensation is intact in all four extremities. SKIN: She has a dressing covering her right hip. That is clean, dry and intact. LABORATORY DATA: Today her hemoglobin is 8.7, hematocrit 26, white blood cells 6.1, platelets 201. INR is 1.37 down from 1.42 the previous day. She received one- dose of Coumadin 8 mg on 03/29/17. IMPRESSION: This 66-year-old woman status post right total hip replacement complicated by fever, acute postoperative anemia, [id number] pain and short bowel syndrome requiring her to be able to toilet herself 12 to 14 times per day. She will be admitted to [facility], so she can return to living independently with her who is unable to assist her. PLAN: 1. Right total hip replacement. Hip precautions and weightbearing as tolerated. She will follow up with Dr. Kevin after discharge. 2. Short bowel syndrome. We will continue her on her current medications and at this stage remove any laxatives that she was on in the acute service. She will need occupational therapy to make sure that she can wipe herself prior to discharge to home. 3. Postoperative fever. Follow up labs and blood cultures. 4. Acute on chronic pain. Continue with current doses of OxyContin 30mg bid. Switching oxycodone from 5 to 15 mg q. 4 hours p.r.n. severe pain. 5. History of PE and DVT. Continue Xarelto 20 mg daily. 6. Acute postoperative anemia. Monitor her CBC. 7. Obstructive sleep apnea, CPAP as at home. 8. Impaired mobility. She will be seen by Physical Therapy for bed mobility, transfer and gait training using a rolling walker as well as stairs. 9. Impaired self-care. She will be seen by Occupational Therapy for ADL training and equipment evaluation. 10. Advanced directives. She is a full code and her is her health care proxy Matt Viiera, phone number is [phone] and [phone]. 11. Estimated length of stay: 5-7 days, then return to home. [id number]/[facility] #: [id number] JOSE
[2017-03-31] MEDS: Potassium Chlor TAB* 20 MEQ TAB.ER PO SCH (21:32)
[2017-03-31] MEDS: Gabapentin CAP(*) 300 MG PO SCH (21:33)
[2017-04-01] MEDS: oxyCODONE TAB* 5 MG TAB PO PRN ×6 (02:15→20:28)
[2017-04-01] MEDS: Loperamide CAP* 2 MG PO SCH ×6 (02:16→22:28)
[2017-04-01 06:53] LABS: Hematocrit 27 % (35-47); Hemoglobin 8.8 g/dl (12.0-16.0); Mean Corpuscular HGB Conc 33 g/dl (31-36); Mean Corpuscular Hemoglobin 29 pg (27-31); Mean Corpuscular Volume 87 fL (80-97); Mean Platelet Volume 7 um3 (7.4-10.4); Red Blood Count 3.04 10^6/ul (4.0-5.4); Red Cell Distribution Width 15 % (10.5-15); White Blood Count 5.7 10^3/ul (3.5-10.8)
[2017-04-01 07:35] LABS: BUN/Creatinine Ratio 15.9 (8-20); Calcium 8.6 mg/dL (8.6-10.3); EGFR African American 122.4 (>60); EGFR Non-African American 95.1 (>60); Potassium 3.5 mmol/L (3.5-5.0); Total Bilirubin 0.6 mg/dL (0.2-1.0)
[2017-04-01] MEDS: Calcium Carbonate CHEW TAB* 500 MG (TUMS) PO SCH ×3 (08:13→20:29)
[2017-04-01] MEDS: Potassium Chlor TAB* 20 MEQ TAB.ER PO SCH ×2 (08:13→20:26)
[2017-04-01] MEDS: Magnesium Oxide TAB* 400 MG PO SCH ×2 (08:13→20:26)
[2017-04-01] MEDS: DULoxetine DR CAP* 60 MG CAP.DR PO SCH (08:14)
[2017-04-01] MEDS: Psyllium PAK PO SCH (08:14)
[2017-04-01] MEDS: Rivaroxaban TAB(*) 20 MG TAB PO SCH (08:14)
[2017-04-01] MEDS: oxyCODONE SR TAB(*) 10 MG TAB.SR PO SCH ×2 (09:54→21:28)
[2017-04-01] MEDS: Acetaminophen TAB* 325 MG PO PRN (12:09)
--- NOTE | 2017-04-01 12:19 | PMRUTEAM ---
PMRU: Goals Current Status: Nursing: Current Status Skin Deviations [right hip] Incision Physical Therapy: Current Status Bed Mobility Assistance supervision Transfer Moblility Assistance CGA Transfer/Bed Mobility Rolling Walker Recommended Devices Ambulation Assistance CGA 30ft Ambulation Assistive Devices Rolling Walker Stairs Assistance Not Tested Stairs Recommended Devices Two Rails Number of Stairs 3 Occupational Therapy: Current Status Upper Body Dressing Supervision Lower Body Dressing Contact Guard Assist Bathing Contact Guard Assist Toileting Contact Guard Assist Toilet Transfer Contact Guard Assist Shower Transfer Contact Guard Assist Eating Independent Instrumental ADL Dependent for IADLs Goals: PHYSICAL THERAPY GOALS: Independent bed mobility, transfers and ambulation 150ft with rolling walker. 3 steps with lofstrand crutches. Occupational Therapy: Initial Goals Goals to be Completed in (Days 5-7 ) Upper Body Bathing Routine Independent Lower Body Bathing Routine Modified Independent with sponge Upper Body Dressing Routine Independent Lower Body Dressing Routine Modified Independent with cut off sawyer log Toilet Hygeine and Clothing Modified Independent Management Routine Toilet Transfer Routine Modified Independent Step-In Shower Transfer Modified Independent Routine Tub Transfer Routine Modified Independent Functional Transfers for ADL Modified Independent Grooming Routine Independent Feeding Routine Independent Light Housekeeping Tasks Independent Care Plan: Care Plan Cardiovascular- Improve/Maintain Start: 03/31/17 13:01 Freq: QSHIFT Status: Active Target: Activity Type Activity Date Activity User E-Sign Co-Sign Detail Recorded Client Recorded Date Recorded By Document 04/01/17 08:00 [id number] 04/01/17 08:19 [id number] 04/01/17 08:00 PMRU Outcome: Cardiovascular Vital Signs q Shift for 48hrs Then BID Yes Daily Weight Ordered No Current Cardiovascular Outcome/Goal Maintain/ Achieve Baseline HR, BP , Perfusion Maintain/ Improve Perfusion Progression Toward Outcome/Goal Progressing Coping/Psych-Improve/Maintain Start: 03/31/17 13:01 Freq: QSHIFT Status: Active Target: Activity Type Activity Date Activity User E-Sign Co-Sign Detail Recorded Client Recorded Date Recorded By Document 04/01/17 08:00 [id number] 04/01/17 08:19 [id number] 04/01/17 08:00 PMRU Outcome: Coping/Psychosocial Coping Outcome/Goals Verbalization of Acceptance of Rehab Admit Verbalization of Sense of Control Over Health Status Utilization of Appropriate Problem Solving Techniques Willingness to Participate in Treatment Plan and Basic Needs Psychosocial Outcome/Goals Maintain/ Improve Emotional Health Cooperate/ Participate in Plan Progression Toward Outcome/Goals - Progressing Coping Progression Toward Outcome/Goals - Progressing Psychosocial DVT Prophylaxis- Improve/Maintain Start: 03/31/17 13:01 Freq: QSHIFT Status: Active Target: Activity Type Activity Date Activity User E-Sign Co-Sign Detail Recorded Client Recorded Date Recorded By Document 04/01/17 08:00 [id number] 04/01/17 08:19 [id number] 04/01/17 08:00 PMRU Outcome: DVT Prophylaxis Outcome/Goals Remains Free of DVT Free of complications from current DVT TEDS Stockings on Every AM, Off at HS Progression Toward Outcome/Goals Progressing Discharge Planning - Improve/Maintain Start: 03/31/17 13:01 Freq: QSHIFT Status: Active Target: Activity Type Activity Date Activity User E-Sign Co-Sign Detail Recorded Client Recorded Date Recorded By Document 03/31/17 21:49 [id number] [email or web address] 03/31/17 22:37 [id number] 03/31/17 21:49 PMRU Outcome: Discharge Planning Update Patient Family No Outcome/Goals Demonstrates Understanding of Discharge Plan Education-Improve/Maintain Start: 03/31/17 13:01 Freq: QSHIFT Status: Active Target: Activity Type Activity Date Activity User E-Sign Co-Sign Detail Recorded Client Recorded Date Recorded By Document 04/01/17 08:00 [id number] [email or web address] 04/01/17 08:19 [id number] 04/01/17 08:00 PMRU Outcome: Education Outcome/Goals Demonstrate/ Verbalize Understanding of Written Discharge Instructions Demonstrates Skills Encourage Questions Progression Toward Outcome/Goals Progressing Outcome/Goals Met Comment Education about the unit, therapy, pain medication, labs. /GI-Improve/Maintain Start: 03/31/17 13:01 Freq: QSHIFT Status: Active Target: Activity Type Activity Date Activity User E-Sign Co-Sign Detail Recorded Client Recorded Date Recorded By Document 04/01/17 08:00 [id number] [email or web address] 04/01/17 08:19 [id number] 04/01/17 08:00 PMRU Outcome: Genitourinary/ Gastrointestinal Genitourinary- Outcome/Goals Maintain/ Achieve Urinary Continence Maintain/ Achieve Adequate Urinary Output Gastrointestinal-Outcome/Goals Maintain/ Achieve Bowel Regularity in Accordance with Pt's Baseline Prevent Constipation Progression Toward Outcome/Goals - Progressing Progression Toward Outcome/Goals - GI Progressing Medication Administration Start: 03/31/17 13:01 Freq: QSHIFT Status: Active Target: Activity Type Activity Date Activity User E-Sign Co-Sign Detail Recorded Client Recorded Date Recorded By Document 04/01/17 08:00 [id number] 04/01/17 08:19 [id number] 04/01/17 08:00 PMRU Outcome: Medication Administration Assess Patient Knowledge/Teach Med No Education for all Meds Outcome/Goals Patient Independent with Medication Administration at Home Demonstrates Understanding Progression Towards Outcome/Goals Progressing Is Patient Going Home on Lovenox? No Neurological- Improve/Maintain Start: 03/31/17 13:01 Freq: QSHIFT Status: Active Target: Activity Type Activity Date Activity User E-Sign Co-Sign Detail Recorded Client Recorded Date Recorded By Document 04/01/17 08:00 [id number] [email or web address] 04/01/17 08:19 [id number] 04/01/17 08:00 PMRU Outcome: Neurological Weakness/Aphasia Weakness Right Side Outcome/Goals Maintain/ Achieve Baseline Neurological Status Maintain/ Improve Strength/ROM Progression Toward Outcome/Goals Progressing Pain/Comfort- Improve/Maintain Start: 03/31/17 13:01 Freq: QSHIFT Status: Active Target: Activity Type Activity Date Activity User E-Sign Co-Sign Detail Recorded Client Recorded Date Recorded By Document 04/01/17 08:00 [id number] 04/01/17 08:19 [id number] 04/01/17 08:00 PMRU Outcome: Pain/Comfort Outcome/Goals Demonstrates Knowledge and Use of Available Comfort Measures Achieves Acceptable Comfort/Pain Level as Determined by Patient/Condit Maintain Comfort Level Allowing Patient to Fully Participate in Rehab Progression Toward Outcome/Goals Progressing Outcome/Goals Met Comment Oxycodone 15mg given along with scheduled Oxycontin and gabapentin given Respiratory - Improve/Maintain Start: 03/31/17 13:01 Freq: QSHIFT Status: Active Target: Activity Type Activity Date Activity User E-Sign Co-Sign Detail Recorded Client Recorded Date Recorded By Document 04/01/17 08:00 [id number] 04/01/17 08:19 [id number] 04/01/17 08:00 PMRU Outcome: Respiratory Does Patient Have a Trach No Outcome/Goals Maintain/ Improve O2 Sat per MD Order Progression Toward Outcome/Goals Progressing Outcome/Goals Met Comment Will place bipap at bed time Safety- Improve/Maintain Start: 03/31/17 13:01 Freq: QSHIFT Status: Active Target: Activity Type Activity Date Activity User E-Sign Co-Sign Detail Recorded Client Recorded Date Recorded By Document 04/01/17 08:00 [id number] 04/01/17 08:19 [id number] 04/01/17 08:00 PMRU Outcome: Safety Outcome/Goals Remain Free of Injury or Harm Prevent Falls/ Injury Progression Toward Outcome/Goals Progressing Outcome/Goals Met Comment Remembering to push up and reach back and not lean on walker Skin- Improve/Maintain Start: 03/31/17 13:01 Freq: QSHIFT Status: Active Target: Activity Type Activity Date Activity User E-Sign Co-Sign Detail Recorded Client Recorded Date Recorded By Document 04/01/17 08:00 [id number] 04/01/17 08:19 [id number] 04/01/17 08:00 PMRU Outcome: Skin Skin Risk Level Medium Skin Orders Turn/Position q2hr While in Bed Outcome/Goals Maintain/ Improve Skin Intergrity Surgical Incisions Healing Progression Toward Outcome/Goals Progressing Outcome/Goals Met Comment Pt repositioning herself Medicine Note: Length of Stay: [4 more days] Anticipated Discharge Destination: home Tentative Discharge Date: [04/05/17] Discharged to: [home]
[2017-04-01] MEDS: Gabapentin CAP(*) 300 MG PO SCH (20:27)
[2017-04-02] MEDS: oxyCODONE TAB* 5 MG TAB PO PRN ×6 (00:22→22:44)
[2017-04-02] MEDS: Loperamide CAP* 2 MG PO SCH ×6 (02:39→22:42)
[2017-04-02] MEDS: Potassium Chlor TAB* 20 MEQ TAB.ER PO SCH ×2 (08:46→20:05)
[2017-04-02] MEDS: Psyllium PAK PO SCH (08:46)
[2017-04-02] MEDS: DULoxetine DR CAP* 60 MG CAP.DR PO SCH (08:47)
[2017-04-02] MEDS: Calcium Carbonate CHEW TAB* 500 MG (TUMS) PO SCH ×3 (08:47→20:06)
[2017-04-02] MEDS: Magnesium Oxide TAB* 400 MG PO SCH ×2 (08:47→21:23)
[2017-04-02] MEDS: oxyCODONE SR TAB(*) 10 MG TAB.SR PO SCH ×2 (08:47→21:20)
[2017-04-02] MEDS: Rivaroxaban TAB(*) 20 MG TAB PO SCH (08:47)
[2017-04-02] MEDS: Acetaminophen TAB* 325 MG PO PRN ×2 (11:43→19:59)
[2017-04-02] MEDS: Gabapentin CAP(*) 300 MG PO SCH (20:03)
[2017-04-03] MEDS: oxyCODONE TAB* 5 MG TAB PO PRN ×5 (03:05→19:54)
[2017-04-03] MEDS: Loperamide CAP* 2 MG PO SCH ×6 (03:14→22:33)
[2017-04-03] MEDS: Acetaminophen TAB* 325 MG PO PRN ×2 (05:29→14:09)
[2017-04-03 07:39] LABS: Calcium 8.6 mg/dL (8.6-10.3); EGFR African American 129.4 (>60); EGFR Non-African American 100.6 (>60)
[2017-04-03] MEDS: Psyllium PAK PO SCH (08:08)
[2017-04-03] MEDS: Magnesium Oxide TAB* 400 MG PO SCH ×2 (08:09→19:53)
[2017-04-03] MEDS: Calcium Carbonate CHEW TAB* 500 MG (TUMS) PO SCH ×3 (08:09→19:54)
[2017-04-03] MEDS: Rivaroxaban TAB(*) 20 MG TAB PO SCH (08:09)
[2017-04-03] MEDS: DULoxetine DR CAP* 60 MG CAP.DR PO SCH (08:09)
[2017-04-03] MEDS: Potassium Chlor TAB* 20 MEQ TAB.ER PO SCH ×2 (08:09→19:53)
[2017-04-03] MEDS: oxyCODONE SR TAB(*) 10 MG TAB.SR PO SCH ×2 (08:10→18:55)
--- NOTE | 2017-04-03 12:14 | PTEDU ---
Patient Name: PORTER RAY PORTER RAY selected video: Hip Replacement Surgery to view on 04/03/2017 at 12:14:20 PM from [id number]
[2017-04-03] MEDS: Gabapentin CAP(*) 300 MG PO SCH (19:52)
[2017-04-04] MEDS: oxyCODONE TAB* 5 MG TAB PO PRN ×6 (00:22→21:07)
[2017-04-04] MEDS: Loperamide CAP* 2 MG PO SCH ×6 (03:30→22:24)
[2017-04-04] MEDS: oxyCODONE SR TAB(*) 10 MG TAB.SR PO SCH ×2 (06:49→19:06)
--- NOTE | 2017-04-04 07:24 | PTEDU ---
Patient Name: PORTER RAY PORTER RAY selected video: Crutch Training to view on 04/04/2017 at 7:23:37 AM from [id number]
[2017-04-04] MEDS: Magnesium Oxide TAB* 400 MG PO SCH ×2 (07:55→21:02)
[2017-04-04] MEDS: DULoxetine DR CAP* 60 MG CAP.DR PO SCH (07:55)
[2017-04-04] MEDS: Calcium Carbonate CHEW TAB* 500 MG (TUMS) PO SCH ×3 (07:55→21:02)
[2017-04-04] MEDS: Psyllium PAK PO SCH (07:55)
[2017-04-04] MEDS: Rivaroxaban TAB(*) 20 MG TAB PO SCH (07:55)
[2017-04-04] MEDS: Potassium Chlor TAB* 20 MEQ TAB.ER PO SCH ×2 (07:55→21:02)
[2017-04-04] MEDS: Acetaminophen TAB* 325 MG PO PRN (16:28)
[2017-04-04] MEDS ORDERED: oxyCODONE SR TAB(*) 20 MG TAB.SR PO SCH (19:00)
[2017-04-04] MEDS: Gabapentin CAP(*) 300 MG PO SCH (21:01)
[2017-04-05] MEDS: oxyCODONE TAB* 5 MG TAB PO PRN ×3 (01:39→09:53)
[2017-04-05] MEDS: Loperamide CAP* 2 MG PO SCH ×3 (01:41→09:56)
[2017-04-05 05:14] VITALS: BP 97/64
[2017-04-05] MEDS: oxyCODONE SR TAB(*) 10 MG TAB.SR PO SCH (07:05)
[2017-04-05] MEDS: DULoxetine DR CAP* 60 MG CAP.DR PO SCH (08:33)
[2017-04-05] MEDS: Magnesium Oxide TAB* 400 MG PO SCH (08:33)
[2017-04-05] MEDS: Rivaroxaban TAB(*) 20 MG TAB PO SCH (08:33)
[2017-04-05] MEDS: Potassium Chlor TAB* 20 MEQ TAB.ER PO SCH (08:33)
[2017-04-05] MEDS: Calcium Carbonate CHEW TAB* 500 MG (TUMS) PO SCH (08:33)
[2017-04-05] MEDS: Psyllium PAK PO SCH (08:33)
[2017-04-05] MEDS: Acetaminophen TAB* 325 MG PO PRN (08:46)
--- NOTE | 2017-04-05 15:50 | DS ---
CC: Dr. Miller; Dr. Kevin REHABILITATION DISCHARGE SUMMARY: DATE OF ADMISSION: 03/31/17 DATE OF DISCHARGE: 04/05/17 PRIMARY CARE PROVIDER: Dr. Miller. ORTHOPEDIC SURGEON: Dr. Kevin. REASON FOR ADMISSION: Right total hip replacement secondary to osteoarthritis. HISTORY OF PRESENT ILLNESS: For full details of her acute hospitalization leading up to her admission, please see the note dictated by myself on 03/31/17. HOSPITAL COURSE: During her time on the [facility] [[email or web address]], she completed a fever and tachycardia evaluation that was initiated on the acute care service with a CTA of the chest to rule out pulmonary embolism. This was negative. Her fevers resolved as did the tachycardia. She was found on the routine labs to have hypokalemia, hypomagnesemia, and hypocalcemia. She was put on supplements with return to normal of all values. She was also noted to have hyperglycemia and hemoglobulin A1c was checked and found to be elevated at 6.3. She was put on a consistent carbohydrate diet and she consulted with a dietitian. She will need to have a followup by Dr. Miller. She has been stable on Xarelto for DVT prophylaxis as well as her history of DVT and PE. She has continued to require 30 mg b.i.d. of OxyContin and 15 mg of oxycodone q.4 hours p.r.n. pain. Her bowels were regulated. 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 Given her degree of pain, it was decided for 2 weeks after discharge to continue on OxyContin 30 mg b.i.d. and 5-15 mg oxycodone Q4h prn and she can wean down as tolerated. Of note, her home regimen of OxyContin used to be 40 mg b.i.d. prescribed by Dr. Miller. She participated well in physical therapy. At the time of discharge, she is independent with bed mobility, using a leg mining consultant as needed. She can transfer and ambulate independently up to 150 feet using a 2- wheeled walker. She can climb 3 steps. She has a home exercise program and knows her precautions. With occupational therapy at the time of discharge, she is independent with bathing, dressing, toileting, and simple home management and cooking. She will have some assistance from her as needed. DISCHARGE MEDICATIONS: 1. OxyContin 30 mg p.o. b.i.d. for the next 2 weeks, then decrease down to 20 mg b.i.d. for which she already has prescription for from Dr. Miller. 2. Oxycodone 5 to 15 mg p.o. q.4 hours p.r.n. pain, wean off as tolerated. 3. Imodium 4 mg q.4 hours. 4. Xarelto 20 mg q.a.m. 5. Lomotil 1 tablet four times a day p.r.n. diarrhea. 6. Metamucil 1 packet q.a.m. 7. Vitamin B12 1000 mcg q. day. 8. Gabapentin 300 mg q.h.s. 9. Calcium carbonate 2 tablets q.a.m. 10. Duloxetine 60 mg p.o. q.a.m. 11. Tylenol 650 mg q.4 hours p.r.n. pain. FOLLOWUP: 1. Follow up with Dr. Kevin in 1 to 2 weeks. 2. Follow up with Dr. Miller in 1 to 2 weeks. 3. A referral has been sent for visiting nurse services. DISCHARGE CONDITION: Good. DISCHARGE DISPOSITION: Home with support. DISCHARGE DIAGNOSES: 1. Status post right total hip replacement with osteoarthritis. 2. Short bowel syndrome, status post total colectomy. 3. New-onset diabetes mellitus, type 2. 4. Chronic anticoagulation for history of pulmonary embolism. 5. Hypokalemia. 6. Hypocalcemia. 7. Hypomagnesemia. 8. Obstructive sleep apnea. 9. Chronic pain form osteoarthritis of the knees and back. [id number]/[facility] #: [id number] [facility]
== END 2017-04-05 13:00 | disposition home or self-care (01) | DRG 560 ==
LOC: PMRU 09:24
PROVIDERS: ADMIT Physical Medicine & Rehabilitation; ATTEND Physical Medicine & Rehabilitation
PROC: F07Z5ZZ Bed Mobility Treatment (ICD-10-PCS; principal; 2017-03-31)
PROC: F07Z9ZZ Gait Training/Functional Ambulation Treatment (ICD-10-PCS; 2017-03-31)
PROC: F07Z8ZZ Transfer Training Treatment (ICD-10-PCS; 2017-03-31)
PROC: F08Z0ZZ Bathing/Showering Techniques Treatment (ICD-10-PCS; 2017-03-31)
PROC: F08Z1ZZ Dressing Techniques Treatment (ICD-10-PCS; 2017-03-31)
PROC: F08Z3ZZ Feeding/Eating Treatment (ICD-10-PCS; 2017-03-31)
DX: Z47.1 Aftercare following joint replacement surgery (principal); K91.2 Postsurgical malabsorption, not elsewhere classified; E83.42 Hypomagnesemia; E11.65 Type 2 diabetes mellitus with hyperglycemia; Z96.641 Presence of right artificial hip joint; E87.6 Hypokalemia; E83.51 Hypocalcemia; G47.33 Obstructive sleep apnea (adult) (pediatric); M17.0 Bilateral primary osteoarthritis of knee; M47.9 Spondylosis, unspecified; G89.29 Other chronic pain; J42 Unspecified chronic bronchitis; R50.82 Postprocedural fever; Z79.1 Long term (current) use of non-steroidal anti-inflammatories (NSAID); Z86.711 Personal history of pulmonary embolism; Z86.718 Personal history of other venous thrombosis and embolism; Z79.01 Long term (current) use of anticoagulants; Z79.891 Long term (current) use of opiate analgesic; Z79.899 Other long term (current) drug therapy; Z88.8 Allergy status to other drugs, medicaments and biological substances; Z82.49 Family history of ischemic heart disease and other diseases of the circulatory system; Z80.1 Family history of malignant neoplasm of trachea, bronchus and lung; Z87.891 Personal history of nicotine dependence
CPT/HCPCS: 36415; 80048; 80053; 83036; 83735; 85025; 94660; A9270-GY

== ENCOUNTER 2018-04-08 18:29 | Emergency (ER) | payer MEDICARE ==
--- NOTE | 2018-04-08 19:06 | ED ---
Complex/Multi-Sys Presentation - HPI Summary HPI Summary: This patient is a 67 year old F presenting to ED with a chief complaint of fatigue and SOB since a couple weeks ago. The patient rates the pain 0/10 in severity. Symptoms aggravated by exertion. Symptoms alleviated by nothing. Patient reports diaphoresis, nausea (last week), light-headed, and dizziness. Patient denies CP and vomiting. 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 The patient is on xarelto due to a blood clot found 2 years ago. - History Of Current Complaint Chief Complaint: EDChestPainROMI Time Seen by Provider: 04/08/18 18:56 Hx Obtained From: Patient Onset/Duration: Sudden Onset, Lasting Weeks, Still Present Timing: Constant Severity Currently: None Aggravating Factor(s): exertion Alleviating Factor(s): nothing Associated Signs And Symptoms: Positive: Other - Patient reports fatigue, SOB, diaphoresis, nausea (last week), light-headed, and dizziness. Patient denies CP and vomiting. - Allergies/Home Medications Allergies/Adverse Reactions: Allergies Allergy/AdvReac Type Severity Reaction Status Date / Time zolpidem [From Ambien] Allergy Severe Hallucinati Verified 04/08/18 18:34 ons PMH/Surg Hx/FS Hx/Imm Hx Endocrine/Hematology History: Reports: Hx Anticoagulant Therapy, Hx Anemia - vitamin D, K deficiency Denies: Hx Diabetes Cardiovascular History: Reports: Hx Deep Vein Thrombosis, Other Cardiovascular Problems/Disorders - H/O PE IN 2014 Denies: Hx Congestive Heart Failure, Hx Hypertension, Hx Pacemaker/ICD Respiratory History: Reports: Hx Chronic Bronchitis, Hx Pulmonary Embolism - 2015, Hx Sleep Apnea, Other Respiratory Problems/Disorders - being treated now for pneumonia Denies: Hx Asthma GI History: Reports: Hx Gastroesophageal Reflux Disease - OTC prn medication, Other GI Disorders - LG COLECTOMY History: Reports: Other Problems/Disorders - hysterectomy, hydronephrosis Denies: Hx Renal Disease Musculoskeletal History: Reports: Hx Arthritis, Hx Back Problems, Other Musculoskeletal History - pt plans to have back surgery and knee replacements in the future Sensory History: Reports: Hx Contacts or Glasses, Hx Vision Problem Denies: Hx Cataracts, Hx Glaucoma, Hx Hearing Aid Opthamlomology History: Reports: Hx Contacts or Glasses, Hx Vision Problem Denies: Hx Cataracts, Hx Glaucoma Neurological History: Reports: Hx Migraine - as a child Psychiatric History: Reports: Hx Depression - on citalopram Denies: Hx Panic Disorder - Cancer History Cancer Type, Location and Year: LIP - BASAL CELL REMOVED Hx Chemotherapy: No Hx Radiation Therapy: No - Surgical History Surgery Procedure, Year, and Place: LSP L4-L5 SURGERY DISC REMOVAL. CHOLECTOMY. HYSTERECTOMY 1987. J POUCH. LIP SURGERY BASAL CELL CARCINOMA. - Rt HIP REPLACEMENT Hx Anesthesia Reactions: No - n & v, only one time, not sure which surgery Infectious Disease History: No Infectious Disease History: Reports: Hx Clostridium Difficile, Hx of Known/ Suspected MRSA Denies: Hx Hepatitis, Traveled Outside the [place] in Last 30 Days - Family History Known Family History: Positive: Cardiac Disease - ICD (father), Other - CVA ( grandfather) - Social History Alcohol Use: None Alcohol Amount: 1-2 drinks a week Hx Substance Use: No Substance Use Type: Reports: None Hx Tobacco Use: Yes Smoking Status (MU): Former Smoker Amount Used/How Often: smoked approx 15 yrs 1-2 ppd Review of Systems Positive: Fatigue, Skin Diaphoresis - upon exertion Negative: Chest Pain Positive: Shortness Of Breath Positive: Nausea. Negative: Vomiting Neurological: Other - light-headed and dizziness All Other Systems Reviewed And Are Negative: Yes Physical Exam - Summary Physical Exam Summary: Appearance: Obese, lying in bed comfortably Skin: Warm, no obvious rash, mild diaphoresis Eyes: sclera anicteric, no conjunctival pallor ENT: mucous membranes moist, pharynx appears normal Neck: Supple, nontender Respiratory: Clear to auscultation, no signs of respiratory distress Cardiovascular: Normal S1, S2. No murmurs. Normal distal pulses in tibial and radial bilaterally. Abdomen: Soft, nontender, normal active bowel sounds present Musculoskeletal: Normal, Strength/ROM Intact Neurological: A&Ox3, awake and alert, mentation is normal, speech is fluent and appropriate Psychiatric: affect is normal, does not appear anxious or depressed Triage Information Reviewed: Yes Vital Signs On Initial Exam: Initial Vitals Temp Pulse Resp BP Pulse Ox 96.6 F 110 17 144/109 100 04/08/18 18:31 04/08/18 18:31 04/08/18 18:31 04/08/18 18:31 04/08/18 18:31 Vital Signs Reviewed: Yes Diagnostics - Vital Signs Vital Signs Temp Pulse Resp BP Pulse Ox 04/08/18 18:31 96.6 F 110 17 144/109 100 - Laboratory Result Diagrams: 04/08/18 19:56 04/08/18 19:56 Lab Statement: Any lab studies that have been ordered have been reviewed, and results considered in the medical decision making process. - Radiology CXR Radiology Interpretation Completed By: Radiologist - No active cardiopulmonary disease is noted. ED physician has reviewed this radiology report. - EKG 1838 Cardiac Rate: NL EKG Rhythm: Sinus Rhythm - 89 BPM EKG Interpretation: 2nd degree AVB Type II Re-Evaluation - Re-Evaluation First Eval Re-Evaluation Time: 20:33 Comment: Discussed discharge plan with the patient. Complex Multi-Symp Course/Dx - Diagnoses Provider Diagnoses: Chest pain, Stable angina Discharge - Sign-Out/Discharge Documenting (check all that apply): Patient Departure - Discharge Plan Condition: Good Disposition: HOME Patient Education Materials: Dyspnea (ED) Referrals: Gian Miller MD [Primary Care Provider] - Additional Instructions: As long as your symptoms are not worsening you can have your family doctor arrange your heart testing. I would avoid any strenuous activity and would take a baby aspirin daily in addition to your other medications. - Billing Disposition and Condition Condition: GOOD Disposition: Home
--- NOTE | 2018-04-08 19:53 | RAD ---
Indication: Dyspnea. 2 views of the chest including dual energy PA views demonstrate no mediastinal shift. Tortuous descending aorta is noted. Heart is of normal size and configuration. Lung mcnair are clear. When compared to previous exam of March 30, 2017 no significant change is noted. IMPRESSION: No active cardiopulmonary disease is noted.
[2018-04-08 20:05] LABS: ABS Basophils 0 10^3/ul (0-0.2); ABS Eosinophils 0.3 10^3/ul (0-0.6); ABS Lymphocytes 2.2 10^3/ul (1.0-4.8); ABS Monocytes 0.5 10^3/ul (0-0.8); ABS Neutrophils 3.8 10^3/ul (1.5-7.7); ABS Nucleated RBC 0 10^3/ul; Eosinophil % 4.3 % (0-6); Hematocrit 33 % (35-47); Hemoglobin 11.3 g/dl (12.0-16.0); Lymphocyte % 32.1 % (25-47); Mean Corpuscular HGB Conc 34 g/dl (31-36); Mean Corpuscular Hemoglobin 28 pg (27-31); Mean Corpuscular Volume 83 fL (80-97); Mean Platelet Volume 7.1 um3 (7.4-10.4); Nucleated Red Blood Cells % 0; Platelet Count 319 10^3/ul (150-450); Red Blood Count 4.01 10^6/ul (4.00-5.40); Red Cell Distribution Width 15 % (10.5-15); White Blood Count 6.8 10^3/ul (3.5-10.8)
[2018-04-08 20:23] LABS: EGFR Non-African American 88.3 (>60)
[2018-04-08] MEDS ORDERED: Aspirin 81 mg CHEW TAB* 81 MG TAB.CHEW PO ONE (20:43)
[2018-04-08 21:16] VITALS: BP 148/103
== END 2018-04-08 20:55 | disposition home or self-care (01) ==
LOC: ED 18:29
DX: R07.9 Chest pain, unspecified (principal); I20.8 Other forms of angina pectoris; I44.1 Atrioventricular block, second degree; Z79.01 Long term (current) use of anticoagulants; Z86.711 Personal history of pulmonary embolism; Z87.891 Personal history of nicotine dependence; Z82.3 Family history of stroke; Z88.8 Allergy status to other drugs, medicaments and biological substances
CPT/HCPCS: 36415; 71046; 80053; 84484; 85025; 93005; 99283; A9270-GY

== ENCOUNTER 2024-02-12 13:11 | Observation (INO) ==
[2024-02-12 14:46] LABS: ABS Basophils 0.1 10^3/uL (0.0-0.1); ABS Eosinophils 0.3 10^3/uL (0.0-0.5); ABS Lymphocytes 1.9 10^3/uL (1.0-4.8); ABS Monocytes 0.9 10^3/uL (0.0-0.9); ABS Neutrophils 6.4 10^3/uL (1.5-7.6); Eosinophil % 2.6 %; Hematocrit 36.8 % (35-45); Hemoglobin 12.4 g/dL (11.5-14.3); Lymphocyte % 20.3 %; Mean Corpuscular Hemoglobin 30.1 pg (27-33); Mean Corpuscular Hgb Conc 33.8 g/dL (31-36); Mean Platelet Volume 7.4 fL (7.5-11.2); Platelet Count 370 10^3/uL (150-450); Red Blood Count 4.13 10^6/uL (3.63-4.92); Red Cell Distribution Width 15.1 % (12-17); White Blood Count 9.5 10^3/uL (3.8-11.8)
[2024-02-12] MEDS: Acetaminophen IV 1 GM/100ML 1,000 MG/100 ML BAG IV ONE (15:30)
[2024-02-12 15:35] LABS: Albumin 4.3 g/dL (3.2-5.2); Albumin/Globulin Ratio 1.8 (1-3); Calcium 9.4 mg/dL (8.6-10.3); Creatinine, Serum 0.64 mg/dL (0.51-0.95); Globulin 2.4 g/dL (2-4); Magnesium 1.7 mg/dL (1.9-2.7); Potassium 4.2 mmol/L (3.5-5.0); Total Bilirubin 0.4 mg/dL (0.2-1.0); Total Protein 6.7 g/dL (6.4-8.9); eGFR CKD-EPI 94.4 (>60)
[2024-02-12 16:01] LABS: High Sensitivity Troponin 1 Hr 8 pg/mL (<15)
[2024-02-12] MEDS: Magnesium Sulfate 2 gm BAG 2 GM/50 ML BAG IVPB ONE (16:20)
[2024-02-12] MEDS: NS 0.9% 1000 ml BAG 1,000 ML IV ONE (16:22)
[2024-02-12] MEDS: dilTIAZem 30 MG TAB PO SCH (22:46)
[2024-02-13 07:11] LABS: ABS Basophils 0.1 10^3/uL (0.0-0.1); ABS Eosinophils 0.3 10^3/uL (0.0-0.5); ABS Lymphocytes 1.8 10^3/uL (1.0-4.8); ABS Monocytes 0.5 10^3/uL (0.0-0.9); ABS Neutrophils 2.5 10^3/uL (1.5-7.6); Eosinophil % 5.4 %; Hematocrit 36.5 % (35-45); Hemoglobin 12.4 g/dL (11.5-14.3); Lymphocyte % 34.3 %; Mean Corpuscular Hemoglobin 30.5 pg (27-33); Mean Corpuscular Volume 89.9 fL (80-97); Mean Platelet Volume 7.3 fL (7.5-11.2); Platelet Count 272 10^3/uL (150-450); Red Blood Count 4.06 10^6/uL (3.63-4.92); Red Cell Distribution Width 15.1 % (12-17); White Blood Count 5.2 10^3/uL (3.8-11.8)
[2024-02-13 07:20] LABS: Calcium 8.9 mg/dL (8.6-10.3); Creatinine, Serum 0.59 mg/dL (0.51-0.95); Potassium 4.1 mmol/L (3.5-5.0); eGFR CKD-EPI 96.3 (>60)
[2024-02-13] MEDS ORDERED: Sulfur Hexaflouride MICROSPHR 25 MG VIAL ONE (10:29)
[2024-02-13] MEDS: Iohexol 350 (CONTRAST) 500 ML MDV IV ONE (19:31)
[2024-02-14 05:09] LABS: Hemoglobin 11.5 g/dL (11.5-14.3); Mean Corpuscular Hemoglobin 30.9 pg (27-33); Mean Corpuscular Hgb Conc 34.9 g/dL (31-36); Mean Corpuscular Volume 88.4 fL (80-97); Platelet Count 263 10^3/uL (150-450); Red Blood Count 3.73 10^6/uL (3.63-4.92); Red Cell Distribution Width 14.9 % (12-17); White Blood Count 4.9 10^3/uL (3.8-11.8)
[2024-02-14 05:43] LABS: Calcium 8.9 mg/dL (8.6-10.3); Creatinine, Serum 0.6 mg/dL (0.51-0.95); Potassium 4.3 mmol/L (3.5-5.0); eGFR CKD-EPI 95.9 (>60)
[2024-02-14 14:19] VITALS: BP 115/73
[2024-02-17 17:19] LABS: Anaplasma phagocytophilum Negative (Negative); B. miyamotoi PCR, B Negative (Negative); Babesia divergens/MO-1 Negative (Negative); Babesia ducani Negative (Negative); Ehrlichia chaffeensis Negative (Negative); Ehrlichia ewingii/canis Negative (Negative); Ehrlichia muris eauclairensis Negative (Negative)
== END 2024-02-14 18:00 | disposition home or self-care (01) ==
LOC: ED 13:11 → EDHOLD 13:11 → MEDTELE 18:27
PROVIDERS: ADMIT Internal Medicine; ATTEND Internal Medicine